=== PATIENT | female | born 1980 | race Caucasian/White ===

== ENCOUNTER → 2019-06-03 | Outpatient (CLI) | payer MEDICARE, BC ==
[~2019-06-03] MED LIST: ATIVAN 0.50.5 MG/TAB PO; CELEXA10 MG; CIPRO 500MG TA500 MG PO; DIFLUCAN 100MG100 MG PO; FLEXERIL 1010 MG/TAB PO; HCTZ 25MG TAB25 MG PO; HCTZ12.5TAB; MYCOSTATIN100000 U/2 TP; NO HOME MEDICATIONS; NORCO 325 MG-51 TAB PO; PERCOCET 325 MG1 TA2 PO; PRILOSEC10 MG PO; PRINIVIL2.5 MG; PYRIDIUM 100MG100 MG PO; REMICADE V100 MG/VIA IV; VICODIN 5/5001 UDTAB PO; ZESTRIL40 MG PO
[2019-06-03 09:50] LABS: ALBUMIN 4.1 gm/dL (3.5-5.0); CALCIUM 8.8 mg/dL (8.4-10.2); CHOLESTEROL RISK RATIO 4.3; CREATININE, serum 0.56 (0.52-1.25); TOTAL PROTEIN 7.2 gm/dL (6.4-8.2)
== END ==
LOC: COL.LAB 09:10
PROVIDERS: Family Medicine
DX: Z13.220 Encounter for screening for lipoid disorders (principal); E66.01 Morbid (severe) obesity due to excess calories; R73.01 Impaired fasting glucose; M06.9 Rheumatoid arthritis, unspecified

== ENCOUNTER → 2019-06-09 | Outpatient (CLI) | payer MEDICARE, BC ==
[~2019-06-09] VITALS: Ht 174 cm; Wt 203.0 kg
[2019-06-09 09:23] VITALS: BP 220/104; PULSE 64
== END ==
LOC: LIGHT
DX: E66.01 Morbid (severe) obesity due to excess calories (principal); Z68.44 Body mass index [BMI] 60.0-69.9, adult; Z71.3 Dietary counseling and surveillance
CPT/HCPCS: G0463

== ENCOUNTER → 2019-07-27 | Outpatient (CLI) | payer MEDICARE, BC | LOC: LIGHT 06-28 10:16 | DX: E88.81 Metabolic syndrome and other insulin resistance (principal); E11.65 Type 2 diabetes mellitus with hyperglycemia; I10 Essential (primary) hypertension; E66.01 Morbid (severe) obesity due to excess calories; Z68.44 Body mass index [BMI] 60.0-69.9, adult; Z71.3 Dietary counseling and surveillance ==

== ENCOUNTER 2021-08-14 17:09 | Outpatient (CLI) | payer MEDICARE, BC ==
[2021-08-14] VITALS (7 sets, daily range): BP systolic 94–142; BP diastolic 58–89; PULSE 72–78; TEMP 98.4
[~2021-08-14 17:09] MED LIST changes: +GLUCOPHAGE XR500 M1 PO; +JANUVIA 100MG100 MG PO; +MASON NATURAL2000 IU PO; +WELLBUTRIN SR150 M1 PO
== END 2021-08-14 17:33 | disposition home or self-care (01) ==
LOC: EUO 17:09
DX: U07.1 COVID-19 (principal); E66.9 Obesity, unspecified; E11.9 Type 2 diabetes mellitus without complications
CPT/HCPCS: M0245

== ENCOUNTER → 2022-11-05 | Outpatient (CLI) | payer MEDICARE, BC | LOC: DIA.ED 11-21 13:37 | DX: E11.65 Type 2 diabetes mellitus with hyperglycemia (principal); Z79.84 Long term (current) use of oral hypoglycemic drugs; I10 Essential (primary) hypertension | CPT/HCPCS: G0108 ==